=== PATIENT | male | born 1955 | race Caucasian/White ===

== ENCOUNTER 2018-01-18 12:41 | Inpatient (IN) | payer BC ==
[~2018-01-18] VITALS: Ht 167.6 cm; Wt 92.8 kg
[~2018-01-18 12:41] MED LIST: LISINOPRIL-HCT1 EAC3 PO
[2018-01-18 13:45] LABS: PLATELET COUNT 130 K/uL (156-360)
[2018-01-18 13:46] LABS: HEMATOCRIT 38.3 % (38.0-50.0); MCH 34.7 PG (29.0-34.0); MCHC 36.6 G/DL (30.0-36.0); RBC DIS.WIDTH-CV 14.1 % (11.8-14.6); RBC DIS.WIDTH-SD 49.6 % (39-53); RED BLOOD COUNT 4.03 M/uL (4.00-5.50); WHITE BLOOD COUNT 31.1 K/uL (4.1-10.2)
[2018-01-18 13:53] LABS: ALBUMIN 3.2 g/dL (3.2-4.8)
[2018-01-18 13:54] LABS: CHLORIDE 95 mEq/L (99-109); POTASSIUM 3.9 mEq/L (3.7-5.4); SODIUM 132 mEq/L (136-147)
[2018-01-18 13:56] LABS: GLUCOSE 121 mg/dL (70-99); TOTAL PROTEIN 8.4 g/dL (6.4-8.3)
[2018-01-18 13:58] LABS: TOTAL BILIRUBIN 1.6 mg/dL (0.0-1.0)
[2018-01-18 13:59] LABS: ALKALINE PHOSPHATASE 56 IU/L (3-129)
[2018-01-18 14:00] LABS: CREATININE 0.9 mg/dL (0.6-1.3); GFR ESTIMATE (CALCULATED) > 59 mL/min/ (58.99-99999)
[2018-01-18 14:01] LABS: AST (GOT) 67 IU/L (2-34); UREA NITROGEN (BUN) 16 mg/dL (9-23)
[2018-01-18 14:03] LABS: ALT (GPT) 33 IU/L (3-49)
[2018-01-18] MEDS ORDERED: ALKA-SELTZER P1 EAC6 PO (16:02)
[2018-01-18] MEDS ORDERED: CORICIDIN HBP1 EAC5 PO (16:03)
[2018-01-18 16:48] LABS: APPEARANCE SL.HAZY ((CLEAR)); BILIRUBIN NEGATIVE; BLOOD LARGE; COLOR YELLOW ((YELLOW)); GLUCOSE (STRIP) NEGATIVE; KETONES NEGATIVE; LEUKOCYTES LARGE; NITRITE NEGATIVE; PROTEIN (STRIP) 30; SPECIFIC GRAVITY 1.044 (1.000-1.030); UROBILINOGEN 0.2 MG/DL (0.2-1.0)
[2018-01-18 16:54] LABS: MAGNESIUM 1.3 mg/dL (1.3-2.7)
[2018-01-18 17:13] LABS: BACTERIA RARE /HPF; EPITHELIAL CELLS RARE /HPF; MUCUS RARE /LPF; UCUL ADDED? YES; WHITE BLOOD CELLS 30-40 /HPF (0-5)
[2018-01-18 23:49] VITALS: BP 160/74
[2018-01-19 06:46] LABS: HEMATOCRIT 36.6 % (38.0-50.0); HEMOGLOBIN 12.9 G/DL (12.5-16.6); MCH 33.9 PG (29.0-34.0); MCHC 35.2 G/DL (30.0-36.0); MCV 96.1 FL (86-99); PLATELET COUNT 103 K/uL (156-360); RBC DIS.WIDTH-CV 14.5 % (11.8-14.6); RBC DIS.WIDTH-SD 51.1 % (39-53); RED BLOOD COUNT 3.81 M/uL (4.00-5.50); WHITE BLOOD COUNT 24.6 K/uL (4.1-10.2)
[2018-01-19 07:11] LABS: CHLORIDE 96 MEQ/L (99-109); CREATININE 0.7 MG/DL (0.6-1.3); GFR ESTIMATE (CALCULATED) > 59 mL/min/ (58.99-99999); GLUCOSE 92 mg/dL (70-99); POTASSIUM 3.4 MEQ/L (3.7-5.4); SODIUM 133 MEQ/L (136-147); UREA NITROGEN (BUN) 19 mg/dL (9-23)
[2018-01-19 07:40] VITALS: BP 145/72
[2018-01-19 07:50] LABS: MAGNESIUM 1.4 mg/dl (1.3-2.7)
[2018-01-19 10:47] LABS: C DIFF TOXIN NEGATIVE (NEGATIVE)
[2018-01-19 11:28] VITALS: BP 145/72
[2018-01-19 15:33] VITALS: BP 173/84
[2018-01-19 19:06] VITALS: BP 141/69
[2018-01-19 23:02] VITALS: BP 144/68
[2018-01-20 03:00] VITALS: BP 154/81
[2018-01-20 06:35] LABS: HEMATOCRIT 36.2 % (38.0-50.0); HEMOGLOBIN 12.5 G/DL (12.5-16.6); MCH 33.1 PG (29.0-34.0); MCHC 34.5 G/DL (30.0-36.0); MCV 95.8 FL (86-99); PLATELET COUNT 112 K/uL (156-360); RBC DIS.WIDTH-CV 14.5 % (11.8-14.6); RBC DIS.WIDTH-SD 50.9 % (39-53); RED BLOOD COUNT 3.78 M/uL (4.00-5.50); WHITE BLOOD COUNT 12.5 K/uL (4.1-10.2)
[2018-01-20 06:50] VITALS: BP 180/94
[2018-01-20 06:55] LABS: CHLORIDE 93 MEQ/L (99-109); CREATININE 0.7 MG/DL (0.6-1.3); GFR ESTIMATE (CALCULATED) > 59 mL/min/ (58.99-99999); GLUCOSE 105 mg/dL (70-99); MAGNESIUM 1.3 mg/dl (1.3-2.7); POTASSIUM 3.3 MEQ/L (3.7-5.4); SODIUM 127 MEQ/L (136-147); UREA NITROGEN (BUN) 19 mg/dL (9-23)
[2018-01-20 11:08] VITALS: BP 182/88
[2018-01-20 15:05] VITALS: BP 188/84
[2018-01-20 20:00] VITALS: BP 176/84
[2018-01-21] VITALS: BP 159/71
[2018-01-21 04:08] VITALS: BP 182/78
[2018-01-21 06:18] LABS: HEMATOCRIT 37.9 % (38.0-50.0); HEMOGLOBIN 13.5 G/DL (12.5-16.6); MCH 33.6 PG (29.0-34.0); MCHC 35.6 G/DL (30.0-36.0); MCV 94.3 FL (86-99); PLATELET COUNT 128 K/uL (156-360); RBC DIS.WIDTH-CV 14.4 % (11.8-14.6); RBC DIS.WIDTH-SD 49.4 % (39-53); RED BLOOD COUNT 4.02 M/uL (4.00-5.50); WHITE BLOOD COUNT 9.5 K/uL (4.1-10.2)
[2018-01-21 07:13] LABS: CHLORIDE 95 MEQ/L (99-109); CREATININE 0.7 MG/DL (0.6-1.3); GFR ESTIMATE (CALCULATED) > 59 mL/min/ (58.99-99999); GLUCOSE 110 mg/dL (70-99); MAGNESIUM 1.4 mg/dl (1.3-2.7); POTASSIUM 3.6 MEQ/L (3.7-5.4); SODIUM 127 MEQ/L (136-147); UREA NITROGEN (BUN) 14 mg/dL (9-23)
[2018-01-21 07:50] VITALS: BP 184/90
[2018-01-21 16:24] VITALS: BP 178/81
[2018-01-21 23:09] VITALS: BP 182/88
[2018-01-22 07:35] VITALS: BP 172/78
[2018-01-22 08:56] LABS: HEMATOCRIT 36.8 % (38.0-50.0); HEMOGLOBIN 12.9 G/DL (12.5-16.6); MCH 33.4 PG (29.0-34.0); MCHC 35.1 G/DL (30.0-36.0); MCV 95.3 FL (86-99); PLATELET COUNT 156 K/uL (156-360); RBC DIS.WIDTH-CV 14.3 % (11.8-14.6); RBC DIS.WIDTH-SD 49.6 % (39-53); RED BLOOD COUNT 3.86 M/uL (4.00-5.50)
[2018-01-22 09:20] LABS: CHLORIDE 96 MEQ/L (99-109); CREATININE 0.7 MG/DL (0.6-1.3); GFR ESTIMATE (CALCULATED) > 59 mL/min/ (58.99-99999); MAGNESIUM 1.3 mg/dl (1.3-2.7); POTASSIUM 3.9 MEQ/L (3.7-5.4); SODIUM 128 MEQ/L (136-147); UREA NITROGEN (BUN) 13 mg/dL (9-23)
[2018-01-22 09:35] LABS: GLUCOSE 166 mg/dL (70-99)
[2018-01-22 15:07] VITALS: BP 163/78
[2018-01-23 00:49] VITALS: BP 147/67
[2018-01-23 06:18] LABS: HEMATOCRIT 37.3 % (38.0-50.0); HEMOGLOBIN 13.6 G/DL (12.5-16.6); MCH 34.1 PG (29.0-34.0); MCHC 36.5 G/DL (30.0-36.0); MCV 93.5 FL (86-99); RBC DIS.WIDTH-CV 14.1 % (11.8-14.6); RBC DIS.WIDTH-SD 48.5 % (39-53); RED BLOOD COUNT 3.99 M/uL (4.00-5.50); WHITE BLOOD COUNT 11.2 K/uL (4.1-10.2)
[2018-01-23 06:19] LABS: PLATELET COUNT 219 K/uL (156-360)
[2018-01-23 06:36] LABS: CHLORIDE 96 MEQ/L (99-109); CREATININE 0.7 MG/DL (0.6-1.3); GFR ESTIMATE (CALCULATED) > 59 mL/min/ (58.99-99999); SODIUM 128 MEQ/L (136-147); UREA NITROGEN (BUN) 14 mg/dL (9-23)
[2018-01-23 06:41] LABS: GLUCOSE 97 mg/dL (70-99)
[2018-01-23 08:00] VITALS: BP 144/71
[2018-01-23 18:14] VITALS: BP 144/72
[2018-01-24 00:33] VITALS: BP 159/77
[2018-01-24 05:58] LABS: HEMATOCRIT 37.1 % (38.0-50.0); HEMOGLOBIN 13.1 G/DL (12.5-16.6); MCHC 35.3 G/DL (30.0-36.0); MCV 93.5 FL (86-99); RBC DIS.WIDTH-CV 14.2 % (11.8-14.6); RBC DIS.WIDTH-SD 48.5 % (39-53); RED BLOOD COUNT 3.97 M/uL (4.00-5.50); WHITE BLOOD COUNT 13.2 K/uL (4.1-10.2)
[2018-01-24 06:01] LABS: PLATELET COUNT 327 K/uL (156-360)
[2018-01-24 06:21] LABS: CHLORIDE 100 MEQ/L (99-109); CREATININE 0.6 MG/DL (0.6-1.3); GFR ESTIMATE (CALCULATED) > 59 mL/min/ (58.99-99999); GLUCOSE 101 mg/dL (70-99); POTASSIUM 4.3 MEQ/L (3.7-5.4); SODIUM 131 MEQ/L (136-147); UREA NITROGEN (BUN) 14 mg/dL (9-23)
[2018-01-24 08:07] VITALS: BP 160/77
[2018-01-24] MEDS ORDERED: THERAGRAN1 TABLET PO (09:47)
[2018-01-24] MEDS ORDERED: Thiamine,Vitamin B1 PO (09:47)
[2018-01-24] MEDS ORDERED: TAMSULOSIN HCL0.4 MG PO (09:47)
[2018-01-24] MEDS ORDERED: FOLIC ACID1 MG PO (09:47)
[2018-01-24] MEDS ORDERED: AMLODIPINE BESY10 MG PO (09:47)
[2018-01-24] MEDS ORDERED: FLAGYL500 MG PO (09:47)
== END 2018-01-24 13:41 | disposition home health service (06) | DRG 726 ==
LOC: EME 12:41 → 5EAST 15:53 → EDOF 15:53 → ENRESERV 16:04 → 5EAST 23:18 → ENPENDDIS 01-24 → 5EAST 01-24 13:41
PROVIDERS: Emergency Medicine; Internal Medicine; Physician Assistant
DX: N40.1 Benign prostatic hyperplasia with lower urinary tract symptoms (principal); R78.81 Bacteremia; E87.2 Acidosis; E87.1 Hypo-osmolality and hyponatremia; Z68.33 Body mass index [BMI] 33.0-33.9, adult; I10 Essential (primary) hypertension; B96.6 Bacteroides fragilis [B. fragilis] as the cause of diseases classified elsewhere; R33.8 Other retention of urine; N35.9 Urethral stricture, unspecified; E66.01 Morbid (severe) obesity due to excess calories; Q54.0 Hypospadias, balanic; M10.9 Gout, unspecified; M19.90 Unspecified osteoarthritis, unspecified site; N32.89 Other specified disorders of bladder; Z90.81 Acquired absence of spleen; N13.8 Other obstructive and reflux uropathy; N43.3 Hydrocele, unspecified
CPT/HCPCS: 74177; 76870; 80048; 80053; 81003; 82948; 83605; 83735; 83930; 83935; 84300; 85027; 87040; 87076; 87086; 87185; 87493; 87506; 87801; 99281; 99285; G0378; J0696; J1650; J3475; J7030; J7040; S0030